=== PATIENT | female | born 1985 | race Caucasian/White ===

== ENCOUNTER → 2017-06-02 | Outpatient (CLI) | payer OTHER ==
[~2017-06-02] MED LIST: CHOL2000 PO; LEVO112T4 PO; MULT-506 PO; TOPI100T20 PO; TOPI200T14 PO
== END | disposition home or self-care (01) ==
LOC: C.PAPS 12:54
PROVIDERS: ATTEND Obstetrics & Gynecology
DX: Z12.4 Encounter for screening for malignant neoplasm of cervix (principal)